=== PATIENT | female | born 1945 | race Caucasian/White ===

== ENCOUNTER 2022-06-22 19:55 | Observation (INO) ==
[2022-06-22] MEDS ORDERED: Naloxone 0.4 MG/ML INJ IVP PRN ×2 (22:25→23:04)
[2022-06-22] MEDS ORDERED: *HR* Dextrose 50 % in Water (Syg) 50 ML SYRINGE IVP PRN (22:28)
[2022-06-22] MEDS ORDERED: Dextrose Gel 15 GM/37.5 ML TUBE PO PRN ×2 (22:28)
[2022-06-22] MEDS ORDERED: D5% in Water 1,000 ML IVC PRN (22:28)
[2022-06-22] MEDS ORDERED: Acetaminophen 325 MG TABLET PO PRN (23:04)
[2022-06-22] MEDS ORDERED: 0.9 % Sodium Chloride 1,000 ML IVC SCH (23:15)
[2022-06-23 03:12] LABS: Hematocrit 40.9 % (35.3-44.9); Hemoglobin 12.8 g/dL (11.5-15.4); Mean Corpuscular HGB Conc 31.3 g/dL (31.6-35.5); Mean Corpuscular Hemoglobin 31.4 pg (28.0-33.3); Mean Corpuscular Volume 100.2 fL (83.0-100.0); Mean Platelet Volume 10.8 fL (9.4-12.4); Platelet Count 176 K/mcL (140-400); Red Blood Count 4.08 M/mcL (3.82-4.97); White Blood Count 11.2 K/mcL (4.3-11.1)
[2022-06-23 03:30] LABS: Calcium 8.8 mg/dL (8.6-10.3); Magnesium 1.6 mg/dL (1.6-2.6); Phosphorous 3.1 mg/dL (2.7-4.5); Potassium 3.8 mEq/L (3.5-5.1)
[2022-06-23] MEDS: Insulin LISPRO 300 UNITS/3 ML VIAL SUBQ SCH ×5 (05:47→21:34)
[2022-06-23] MEDS: Metoprolol XL (24 HR) Succ 50 MG TAB.ER.24H PO SCH (21:34)
[2022-06-23] MEDS: Apixaban 5 MG TABLET PO SCH (21:34)
[2022-06-24] MEDS ORDERED: Nitroglycerin 0.4 MG TAB.SUBL SL PRN (07:30)
[2022-06-24] MEDS: Insulin LISPRO 300 UNITS/3 ML VIAL SUBQ SCH ×4 (08:10→20:57)
[2022-06-24] MEDS: Apixaban 5 MG TABLET PO SCH ×2 (10:41→20:57)
[2022-06-24] MEDS: Isosorbide MONOnitrate (24 HR) 30 MG TAB.ER.24H PO SCH (10:41)
[2022-06-24] MEDS: Metoprolol XL (24 HR) Succ 50 MG TAB.ER.24H PO SCH ×2 (10:41→20:57)
[2022-06-24] MEDS: lisinopriL 20 MG TABLET PO SCH (10:41)
[2022-06-24] MEDS: PARoxetine 20 MG TABLET PO SCH (10:41)
[2022-06-24] MEDS: Furosemide 20 MG TABLET PO SCH (10:41)
[2022-06-24] MEDS ORDERED: Gadolinium Contrast Agent (WT Based) IV PRN (15:27)
[2022-06-25] MEDS: Insulin LISPRO 300 UNITS/3 ML VIAL SUBQ SCH ×4 (07:50→21:21)
[2022-06-25] MEDS: Apixaban 5 MG TABLET PO SCH ×2 (09:41→21:20)
[2022-06-25] MEDS: Isosorbide MONOnitrate (24 HR) 30 MG TAB.ER.24H PO SCH (09:41)
[2022-06-25] MEDS: Metoprolol XL (24 HR) Succ 50 MG TAB.ER.24H PO SCH ×2 (09:41→21:21)
[2022-06-25] MEDS: PARoxetine 20 MG TABLET PO SCH (09:41)
[2022-06-25] MEDS: lisinopriL 20 MG TABLET PO SCH (09:41)
[2022-06-26] MEDS: Insulin LISPRO 300 UNITS/3 ML VIAL SUBQ SCH ×3 (08:42→21:12)
[2022-06-26] MEDS: Isosorbide MONOnitrate (24 HR) 30 MG TAB.ER.24H PO SCH (09:06)
[2022-06-26] MEDS: lisinopriL 20 MG TABLET PO SCH (09:06)
[2022-06-26] MEDS: Apixaban 5 MG TABLET PO SCH ×2 (09:06→21:12)
[2022-06-26] MEDS: PARoxetine 20 MG TABLET PO SCH (09:06)
[2022-06-26] MEDS: Metoprolol XL (24 HR) Succ 50 MG TAB.ER.24H PO SCH ×2 (09:06→21:12)
[2022-06-26] MEDS: Furosemide 20 MG TABLET PO SCH (09:12)
[2022-06-27 03:41] VITALS: O2SAT 98
[2022-06-27] MEDS: Insulin LISPRO 300 UNITS/3 ML VIAL SUBQ SCH ×2 (09:27→12:40)
[2022-06-27] MEDS: Metoprolol XL (24 HR) Succ 50 MG TAB.ER.24H PO SCH (09:46)
[2022-06-27] MEDS: Apixaban 5 MG TABLET PO SCH (09:46)
[2022-06-27] MEDS: PARoxetine 20 MG TABLET PO SCH (09:46)
[2022-06-27] MEDS: Isosorbide MONOnitrate (24 HR) 30 MG TAB.ER.24H PO SCH (09:46)
[2022-06-27] MEDS: lisinopriL 20 MG TABLET PO SCH (09:46)
[2022-06-27 09:56] VITALS: BP 112/72; PULSE 68; TEMP 98
[2022-06-27] MEDS ORDERED: Flu Vac QV 22-23 (6MOS UP)/PF 0.5 ML SYRINGE IM ONE (10:59)
[2022-06-27 11:09] LABS: Adenovirus Not Detected (Not Detect); Bordetella Pertussis Not Detected (Not Detect); Chlamydophila pneumoniae Not Detected (Not Detect); Coronavirus 229E Not Detected (Not Detect); Coronavirus HKU1 Not Detected (Not Detect); Coronavirus NL63 Not Detected (Not Detect); Coronavirus OC43 Not Detected (Not Detect); Human Metapneumovirus Not Detected (Not Detect); Human Rhinovirus/Enterovirus Not Detected (Not Detect); Influenza A Subtype 2009 H1 Not Detected (Not Detect); Influenza B Not Detected (Not Detect); Mycoplasma pneumoniae Not Detected (Not Detect); Parainfluenza Virus 1 Not Detected (Not Detect); Parainfluenza Virus 2 Not Detected (Not Detect); Parainfluenza Virus 3 Not Detected (Not Detect); Parainfluenza Virus 4 Not Detected (Not Detect); Respiratory Syncytial Virus Not Detected (Not Detect); SARS-CoV-2 Not Detected (Not Detect)
[2022-06-27] MEDS ORDERED: Moderna COVID-19 Vac ,BIVALENT BOOSTER 50 MCG/0.5 ML VIAL IM ONE (11:15)
[2022-06-29] MEDS ORDERED: Ergocalciferol (VIT D2) 50,000 UNIT (1.25MG) CAP PO SCH (07:30)
== END 2022-06-27 15:50 ==
LOC: 4WAOSI → SUATTDRO 22:12
PROVIDERS: ADMIT Internal Medicine; ATTEND Hospitalist